=== PATIENT | male | born 1950 | race Caucasian/White ===

== ENCOUNTER → 2017-11-15 | Day surgery (SDC) | payer OTHER ==
[2017-11-14 09:25] VITALS: Ht 171.5 cm; Wt 85.5 kg
[~2017-11-15] VITALS: Ht 171.5 cm; Wt 85.5 kg
[~2017-11-15] MED LIST: ATEN50TA8 PO; ATROPINE SULFATE 0.1 MG/ML 5ML SYR IV PRN; BUPIVACAINE/EPINEPHRINE 0.5% MPF 1:200,000 30 ML VIAL ONE; CEFAZOLIN SOD 1 GM VIAL ONE; EpHEDrine SULFATE INJ 50 MG/ML AMP IV PRN; FENTANYL CITRATE INJ 50 MCG/1 ML 2 ML VIAL ONE; HYDR25TA4 PO; LACTATED RINGER'S 1000ML 1,000 ML IV SCH; LIDOCAINE HCL 2% 2 ML VIAL (20MG/ML) ONE; LIDOCAINE HCL 2% LOCAL 20 ML VIAL ONE; LISI40TA PO; MIDAZOLAM HCL 1 MG/ML 2ML VIAL ONE; PATIENT'S ALLERGY INFO NEEDS ENTERED SCH; PROPOFOL IV EMULSION 10 MG/ML 20 ML VIAL ONE; SODIUM CHLORIDE 0.9% 1000ML 1,000 ML IV SCH; SODIUM CHLORIDE 0.9% INJ 10 ML VIAL ONE
--- NOTE | 2017-11-15 07:26 | History & Physical Bridge - [place] ---
H&P Re-Evaluation Bridge Note: I have examined the patient, reviewed the History & Physical and in the interval since the performance of the History & Physical I have noted the following changes of clinical significance: No changes noted
--- NOTE | 2017-11-15 07:58 | [facility] Post Operative Brief Note ---
Immediate Operative Summary Operative Date November 15, 2017. Pre-Operative Diagnosis Left Carpal Tunnel Syndrome Post-Operative Diagnosis same Procedure(s) Performed Left Carpal Tunnel Release Surgeon Dr. Chiqui Carlton Factory Engineer Surgeon(s) Claudio Garnett PA-C Estimated Blood Loss minimal Findings Consistent with Post-Op Diagnosis Specimens none Drains None Anesthesia Type MAC Complication(s) none Disposition Accompanied Pt To Recovery: no Disposition: Recovery Room / PACU
--- NOTE | 2017-11-15 08:06 | Discharge Instructions-SurgCtr ---
Discharge Instructions Date of Service November 15, 2017. Visit Reason for Visit: Left Carpal Tunnel Syndrome Discharge Discharge Diagnosis / Problem: LEFT CARPAL TUNNEL SYNDROME Discharge Goals Goal(s): Decrease discomfort, Therapeutic intervention Medications Stopped Medications Name(s): No blood thinners Activity Recommendations Activity Limitations: per Instructions/Follow-up section Anesthesia . Post Anesthesia Instructions: If you have had General Anesthesia or IV Sedation: * Do not drive today. * Resume driving when surgeon permits. * Do not make important decisions or sign legal documents today. * Call surgeon for: 1. Temperature elevations greater than 101 degrees F. 2. Uncontrollable pain. 3. Excessive bleeding. 4. Persistent nausea and vomiting. 5. Medication intolerance (nausea, vomiting or rash). * For nausea and vomiting use only clear liquids such as: tea, soda, bouillon until nausea subsides, then gradually increase diet as tolerated. * If you have any concerns or questions, call your surgeon's office. If physician is unavailable and it is an emergency, call 911 or go to the nearest emergency room. . Instructions / Follow-Up Instructions / Follow-Up MEDICATIONS: * Resume previous medications unless instructed otherwise by your surgeon. * Always take pain medication on a full stomach or with food to avoid upset stomach. * Do not drink alcohol or drive while taking narcotics. * Ibuprofen or Tylenol may be taken if narcotic not needed. SPECIAL CARE INSTRUCTIONS: __ None __ Keep extremity elevated and iced x 48 hours; apply ice 20-30 minutes 8-10 times/day. May remove at night. __ Sling __24 hrs/day __ Remove at night __ Shoulder Immobilizer __ 24 hrs/day __ Remove at night _X_ Dressing _X_ Maintain until seen in office, may shower with plastic over site __ Remove dressings in 24-48 hours and then may shower __ Cover incisions with band-aids after showering __ Do not remove steri-strips Call physician if chills or temperature rises above 102 degrees or pain unrelieved by prescribed pain medications at . . FOLLOW UP IN 2 WEEKS Diet Recommendations Home Diet: resume previous diet Procedures Procedures Performed: Left Carpal Tunnel Release Pending Studies Studies pending at discharge: no Medical Emergencies . Who to Call and When: Medical Emergencies: If at any time you feel your situation is an emergency, please call 911 immediately. . Non-Emergent Contact Non-Emergency issues call your: Surgeon . . "Provider Documentation" section prepared by John Garnett. .
[2017-11-15 08:45] VITALS: BP 159/87; PULSE 58; TEMP 36.7; O2SAT 96
--- NOTE | 2017-11-15 08:49 | Anesthesia Progress Nt - [facility] ---
Anesthesia Post Op Note Date & Time November 15, 2017 at 08:49 Vital Signs Pain Intensity: 0 Vital Signs Past 12 Hours Date Time Temp Pulse Resp B/P (MAP) Pulse Ox O2 Delivery O2 Flow Rate FiO2 11/15/17 08:45 36.7 58 20 159/87 (111) 96 Room Air 11/15/17 08:04 36.3 58 20 141/82 (101) 96 Room Air 11/15/17 06:27 36.6 56 16 167/100 (122) 100 Room Air Notes Mental Status: alert / awake / arousable, participated in evaluation Pt Amnestic to Procedure: Yes Nausea / Vomiting: adequately controlled Pain: adequately controlled Airway Patency, RR, SpO2: stable & adequate BP & HR: stable & adequate Hydration State: stable & adequate Anesthetic Complications: no major complications apparent
--- NOTE | 2017-11-15 09:23 | OPERATIVE REPORT ---
DATE OF OPERATION: 11/15/2017 SURGEON: Allen Carlton MD COMMUNITY SUPPORT SPECIALIST: JOSIAH Quintanilla PREOPERATIVE DIAGNOSIS: Left carpal tunnel syndrome. POSTOPERATIVE DIAGNOSIS: Left carpal tunnel syndrome. PROCEDURE PERFORMED: Left carpal tunnel release. COMPLICATIONS: None. ESTIMATED BLOOD LOSS: Minimal. TOURNIQUET TIME: 7 minutes at 250 mmHg. ANESTHESIA: Local with IV sedation. OPERATIVE INDICATIONS: The patient is a 67-year-old very active vj gentleman, who has had a several year history of left hand pain, discomfort, and numbness that gotten significantly worse over the past 6 months. He had nerve studies that revealed carpal tunnel syndrome. He elected to proceed with surgical treatment. OPERATIVE PROCEDURE: The patient was taken to the operating room, identified, and placed on the operating table in supine position. All contact areas were appropriately padded. IV antibiotics were provided by anesthesia team. A left forearm tourniquet was placed. Some IV sedation was provided. About 8 mL of a 50:50 combination of 0.5% bupivacaine with epinephrine and 2% lidocaine were then injected in and around the proposed incision site. The left hand was then prepped and draped in usual sterile fashion. The left arm was elevated and exsanguinated with Esmarch and tourniquet was placed at 250 mmHg. A 3-cm incision was made in the palm just ulnar to the palmaris longus tendon. Blunt dissection was carried out through subcutaneous tissues down to the level of the palmar fascia. The palmar fascia was incised longitudinally in line with skin incision. The underlying transverse carpal ligament was identified. It was cleaned of all soft tissues. It was transected distally with use of a [place] blade knife and bluntly spread. Attention was then drawn proximally. Blunt dissection was carried out above and below the ligament proximally. The ligament was transected about 3 cm proximal to the wrist flexion crease. The ligament was bluntly spread and found to be completely released. The wound was irrigated with copious amounts of normal saline. The tourniquet was let down for a tourniquet time of 7 minutes. Hemostasis was assured with use of electrocautery. The wound was once again irrigated. The skin was closed with 4-0 nylon suture in a simple fashion. The hand was then cleaned and dried and a sterile dressing of Xeroform, 4 x 4, sterile cast padding, and Richard bandage were applied. The patient was then transferred to the recovery room in stable condition. The patient tolerated the procedure well with no complications. All needle and sponge counts were correct at the end of the operation. I attest to the content of the Intraoperative Record and any orders documented therein. Any exceptions are noted below. MTDD
== END | disposition home or self-care (01) ==
LOC: X.SURG 06:07
PROVIDERS: ATTEND Orthopaedic Surgery Sports Medicine
DX: G56.02 Carpal tunnel syndrome, left upper limb (principal); I10 Essential (primary) hypertension